=== PATIENT | female | born 1965 | race Caucasian/White ===

== ENCOUNTER → 2016-10-06 | Outpatient (CLI) | payer OTHER ==
[2016-10-06 07:45] LABS: HEMATOCRIT 43.4 % (35.0-46.0); MEAN CELL VOLUME 86.7 FL (80.0-100.0); MEAN CORPUSCULAR HEMOGLOBIN 29.8 PG (27.0-34.0); MEAN CORPUSCULAR HGB CONC 34.4 % (32.0-36.0); PLATELET COUNT 206 TH/MM3 (150-450); RED BLOOD COUNT 5.01 MIL/MM3 (4.00-5.30); RED CELL DISTRIBUTION WIDTH 13.6 % (11.6-17.2); REVIEW FLAG FINAL; WHITE BLOOD COUNT 6.5 TH/MM3 (4.0-11.0)
[2016-10-06 08:12] LABS: ANION GAP 8 MEQ/L (5-15); AST (GOT) 16 U/L (15-37); BICARBONATE 26.5 MEQ/L (21.0-32.0); BLOOD UREA NITROGEN 14 MG/DL (7-18); CHLORIDE 107 MEQ/L (98-107); GLUCOSE,FASTING 92 MG/DL (74-99); POTASSIUM 4.2 MEQ/L (3.5-5.1); SODIUM (NA) 141 MEQ/L (136-145)
[2016-10-06 08:26] LABS: BLOOD, URINE NEG (NEG); COMMENT (UR) CULT NOT INDICATED; CULTURE IF INDICATED CULT NOT INDICATED; GLUCOSE,URINE NEG (NEG); KETONE, URINE 40 mg/dL (NEG); MUCUS URINE FEW /lpf (OCC); NITRITE,URINE NEG (NEG); PH, URINE 5.5 (5.0-8.5); SQUAMOUS EPITHELIAL CELL URINE <1 /hpf (0-5); URINE COLOR YELLOW (YELLW/STRAW)
[2016-10-06 08:39] LABS: ALKALINE PHOSPHATASE 75 U/L (45-117); ALT (GPT) 29 U/L (10-53); GLOMERULAR FILTRATION RATE 71 ML/MIN (>89); HDL CHOLESTEROL 48.5 MG/DL (40.0-60.0); LDL CHOLESTEROL 131 MG/DL (0-99); TOTAL BILIRUBIN ADULT 0.4 MG/DL (0.2-1.0)
== END ==
LOC: CLAB 07:14
PROVIDERS: ATTEND Internal Medicine
DX: R73.01 Impaired fasting glucose (principal); E53.8 Deficiency of other specified B group vitamins; E55.9 Vitamin D deficiency, unspecified; N20.0 Calculus of kidney
CPT/HCPCS: 36415; 80053; 80061; 81001; 82306; 82607; 84443; 85027

== ENCOUNTER → 2017-01-25 | Outpatient (CLI) | payer OTHER ==
[~2017-01-25] MED LIST: BUSP5TAB PO; HYDR-3366 PO; IBUP1TAB7 PO
[2017-01-25 12:16] LABS: BLOOD, URINE NEG (NEG); GLUCOSE,URINE NEG (NEG); KETONE, URINE NEG (NEG); NITRITE,URINE NEG (NEG); SQUAMOUS EPITHELIAL CELL URINE <1 /hpf (0-5); URINE COLOR LIGHT-YELLOW (YELLW/STRAW)
[2017-01-25 12:17] LABS: COMMENT (UR) CULT NOT INDICATED; CULTURE IF INDICATED CULT NOT INDICATED
[2017-01-25 12:19] LABS: AUTOMATED NEUTROPHIL # 4.8 TH/MM3 (1.8-7.7); BASOPHIL # 0.1 TH/MM3 (0-0.2); BASOPHIL % 0.7 % (0.0-2.0); EOSINOPHIL # 0.1 TH/MM3 (0-0.4); HEMATOCRIT 43.1 % (35.0-46.0); HEMO FLAGS DIFF FINAL; LYMPH % 36.5 % (9.0-44.0); LYMPHOCYTE # 3.2 TH/MM3 (1.0-4.8); MEAN CELL VOLUME 88.1 FL (80.0-100.0); MEAN CORPUSCULAR HEMOGLOBIN 29.6 PG (27.0-34.0); MEAN CORPUSCULAR HGB CONC 33.6 % (32.0-36.0); MONO % 7.6 % (0.0-8.0); NEUT % 54.2 % (16.0-70.0); PLATELET COUNT 237 TH/MM3 (150-450); RED BLOOD COUNT 4.89 MIL/MM3 (4.00-5.30); RED CELL DISTRIBUTION WIDTH 13.9 % (11.6-17.2); WHITE BLOOD COUNT 8.8 TH/MM3 (4.0-11.0)
[2017-01-25 12:23] LABS: APTT (PATIENT) 26.7 SEC (24.3-30.1); PROTHROMBIN TIME - PATIENT 10.6 SEC (9.8-11.6)
--- NOTE | 2017-01-25 12:52 | RADRPT ---
EXAM DATE/TIME: 01/25/2017 12:31 [facility] COMPARISON: No previous studies available for comparison. INDICATIONS : Pre op cervical disectomy. Evaluate for pneumonia, pneumothorax, or communicable diseases. MEDICAL HISTORY : None. SURGICAL HISTORY : None. ENCOUNTER: Initial ACUITY: 1 day PAIN SCORE: 0/10 LOCATION: Bilateral chest FINDINGS: PA and lateral views of the chest demonstrate the lungs to be symmetrically aerated without evidence of mass, infiltrate or effusion. The cardiomediastinal contours are unremarkable. Osseous structure s are intact. CONCLUSION: No acute disease. Blayne Gaitan MD on January 25, 2017 at 12:51 Board Certified Radiologist. This report was verified electronically.
--- NOTE | 2017-01-26 15:47 | EKG ---
Date Performed: 01/25/2017 Time Performed: 12:02:23 PTAGE: 52 years EKG: Sinus rhythm NORMAL ECG NO PREVIOUS TRACING DOCTOR: Phong Orr Interpretating Date/Time 01/26/2017 15:46:19
== END ==
LOC: CPRE 11:37
PROVIDERS: ATTEND Neurological Surgery
DX: Z01.812 Encounter for preprocedural laboratory examination (principal); Z01.811 Encounter for preprocedural respiratory examination; Z01.810 Encounter for preprocedural cardiovascular examination; M50.10 Cervical disc disorder with radiculopathy, unspecified cervical region; M48.02 Spinal stenosis, cervical region; M50.30 Other cervical disc degeneration, unspecified cervical region; M47.12 Other spondylosis with myelopathy, cervical region; Z79.01 Long term (current) use of anticoagulants
CPT/HCPCS: 36415; 71020; 81001; 85025; 85610; 85730; 93005

== ENCOUNTER 2017-02-01 06:02 | Observation (INO) | payer OTHER ==
[~2017-02-01] VITALS: Ht 165.1 cm; Wt 105.0 kg
[2017-02-01] MEDS ORDERED: VANCOMYCIN HCL 1000 MG ON-CALL/NS 250 ML IV SCH ×2 (07:00)
[2017-02-01] MEDS ORDERED: SODIUM CHLORID 0.9% 500 ML IV PRN (07:00)
[2017-02-01] MEDS ORDERED: CHLORHEXIDINE GLUCONATE 2 % 1 PACK (2 CLOTHS) TOPICAL PRN (07:00)
[2017-02-01] MEDS ORDERED: METOPROLOL TARTRATE 25 MG TAB PO PRN (07:00)
[2017-02-01] MEDS ORDERED: INSULIN HUMAN REGULAR 1,000 UNITS/10 ML VIAL SQ PRN (07:00)
[2017-02-01] MEDS ORDERED: POVIDONE IODINE 5% (ANTISEPSIS KIT) 4 APPLICATIONS EACH NARE PRN (07:00)
[2017-02-01] MEDS ORDERED: SODIUM CHLOR 0.9% 1000 ML INJ 1,000 ML IV SCH (07:00)
[2017-02-01] MEDS ORDERED: LACTATED RINGER'S 1000 ML IV PRN (07:00)
[2017-02-01] MEDS ORDERED: VANCOMYCIN HCL 1000 MG VIAL ONE (07:10)
[2017-02-01] MEDS ORDERED: BUPIVACAINE/EPINEPHRINE 0.5% PF 30 ML VIAL ONE (07:10)
[2017-02-01] MEDS ORDERED: THROMBIN (TOPICAL) 5,000 UNIT VIAL ONE ×2 (07:10→10:36)
[2017-02-01] MEDS ORDERED: GELFOAM SIZE 100 ONE ×2 (07:11→10:36)
[2017-02-01] MEDS ORDERED: APREPITANT 40 MG CAP ONE (07:45)
[2017-02-01] MEDS ORDERED: PROPOFOL 500 MG/50 ML INJ 100 ML ONE (07:57)
[2017-02-01] MEDS ORDERED: ACETAMINOPHEN 1000 MG/100 ML 100 ML IV ONE (07:57)
[2017-02-01] MEDS ORDERED: DEXAMETHASONE SOD PHOS 4 MG/ML VIAL ONE (07:57)
[2017-02-01] MEDS ORDERED: NS + KCL 20 MEQ INJ 1,000 ML IV SCH (11:42)
[2017-02-01] MEDS ORDERED: MENTHOL LOZENGE BUCCAL PRN (11:45)
[2017-02-01] MEDS ORDERED: ACETAMINOPHEN/HYDROcodone 325 MG/10 MG TAB PO PRN ×2 (11:45)
[2017-02-01] MEDS ORDERED: ZOLPIDEM TARTRATE 5 MG TAB PO PRN (11:45)
[2017-02-01] MEDS ORDERED: PROMETHAZINE INJ 25 MG/ML VIAL IM PRN (11:45)
[2017-02-01] MEDS ORDERED: CYCLOBENZAPRINE HCL 10 MG TAB PO PRN (11:45)
[2017-02-01] MEDS ORDERED: RESP: ALBUTEROL 2.5 MG/3 ML NEB (PRN) NEB (11:45)
[2017-02-01] MEDS ORDERED: MAGNESIUM HYDROXIDE SUSP 30 ML CUP PO PRN (11:45)
[2017-02-01] MEDS ORDERED: SODIUM CHLORIDE 0.9% FLUSH 10 ML FLUSH IV FLUSH PRN (11:45)
[2017-02-01] MEDS ORDERED: ALUMINUM/MAGNESIUM/SIMETH 30 ML CUP PO PRN (11:45)
[2017-02-01] MEDS ORDERED: cloNIDine HCL 0.1 MG TAB PO PRN (11:45)
[2017-02-01] MEDS ORDERED: ACETAMINOPHEN 325 MG TAB PO PRN (11:45)
--- NOTE | 2017-02-01 11:48 | PD.OP ---
Silvia Angulo MD Operative Report Date of Surgery: Feb 01, 2017 Preoperative Diagnosis: Intractable neck pain with polyradiculopathy; C5-6 and C6-7 disc osteophyte complexes stenosis spinal and foraminal stenosis Postoperative Diagnosis: Same Procedure: Anterior cervical C5-6 and C6-7 microdiscectomy with interbody fusion; anterior C5-7 cervical plate placement; C5-6 and C6-7 interbody cage placement; microsurgical technique Anesthesia: Gen. endotracheal by Titus bernardo Surgeon: Julius Wen M.D. [employer] Laborer(s): Opal Loja Operation and Findings: Following administration of general endotracheal anesthesia, the patient received a gram of vancomycin and Decadron 10 mg intravenously. Sequential compression devices and Jaimes catheter were placed in supine position on a Sudheer table and all pressure points adequately padded. The head secured in a donut and anterior cervical region then shaved and prepped with Chloraprep and sterilely draped with Ioban along with the usual sterile draping. A transverse skin incision on the left side of the neck was then made after infiltrating the skin with 0.5% Marcaine with epinephrine solution extending down through the platysma. At the anterior border of the sternocleidomastoid further dissection was undertaken developing a plane between the carotid sheath laterally and the trachea esophagus medially. The prevertebral fascia was exposed and dissected out. The medial attachments of the longus colli muscles were detached and a self-retaining retractor used for exposure. The C5-6 disc space was localized with a marking the disc space and using lateral fluoroscopy. Hallandale distraction screws 14 mm length were placed one in the C5 and one in the C7 body interbody distraction and exposure. There was significant disc degeneration and anterior osteophytes noted at the C5-6 and C6-7 levels and the osteophytes were resected with a Leksell and annulus incised with a 15 blade and further dissection undertaken using microtechnique with microscope magnification. Diskectomy was undertaken with pituitaries and the endplates were also decorticated with curettes and drill bit. And more posteriorly there was disk osteophyte complex compressing the thecal sac along with a significant uncovertebral joint hypertrophy with foraminal stenosis which was decompressed along with removal of the posterior longitudinal ligaments at both levels. The foramen was decompressed bilaterally using a Kerrison's and palpation with a nerve hook, the exiting nerve roots were felt to be free. The area was then copiously irrigated. I then placed a Peek cage packed with local autograft bone at the C5-6 interspace under fluoroscopy guidance. Hallandale distraction pins were removed and the holes plugged with Gelfoam for hemostasis. In order to facilitate the fusion and provide stabilization, a Precision spine cervical plate was then placed with two 14 mm variable angle screws in the C5 body and two 14 mm fixed angle screws in the C6 body. The plate screw locking mechanism was then engaged. AP and lateral fluoroscopy confirmed good placement of the construct and the retractor was then removed. Muscular bleeding points were cauterized with bipolar cautery and Gelfoam was then also used for hemostasis which was removed. The platysma was then approximated using 3-0 Vicryl interrupted stitches and 3-0 Vicryl subcuticular stitch also placed in an interrupted fashion, and final skin closure was with Mastisol and Steri-Strips. Sterile dressing was then applied. Neck immobilized in a Ellsworth collar. The patient was then extubated and taken to the recovery room. There are no intraoperative complications and all sponge and needle counts were correct at the end of procedure. Estimated blood loss was about 50 cc. The patient did undergo intraoperative neurologic monitoring which remained stable throughout the surgery. Julius Wen MD Feb 01, 2017 11:48
[2017-02-01] MEDS ORDERED: METOPROLOL TARTRATE 5 MG/5 ML VIAL IV PUSH ONE (12:00)
[2017-02-01] MEDS ORDERED: LIDOCAINE HCL 1% PF 5 ML SYRINGE OTHER ONE ×2 (12:00)
[2017-02-01] MEDS ORDERED: LACTATED RINGER'S 1000 ML INJ 1,000 ML IV ONE (12:00)
[2017-02-01] MEDS ORDERED: ONDANSETRON HCL 4 MG/2 ML VIAL IV ONE (12:00)
[2017-02-01] MEDS ORDERED: ROCURONIUM INJ 50 MG/5 ML SYRINGE IV PUSH ONE ×2 (12:00)
[2017-02-01] MEDS ORDERED: MIDAZOLAM HCL 2 MG/2 ML VIAL IV ONE (12:00)
[2017-02-01] MEDS ORDERED: PHENYLEPH/NS 1000 MCG/10 ML SYR IV ONE (12:00)
[2017-02-01] MEDS ORDERED: GLYCOPYRROLATE 1 MG/5 ML SYRINGE IV PUSH ONE ×2 (12:00)
[2017-02-01] MEDS ORDERED: ONDANSETRON HCL 4 MG/2 ML VIAL IV PUSH ONE (12:00)
[2017-02-01] MEDS ORDERED: NORMOSOL R INJ 1,000 ML IV ONE (12:00)
[2017-02-01] MEDS ORDERED: ePHEDrine/NS 25 MG/5 ML SYR IV ONE (12:00)
[2017-02-01] MEDS ORDERED: DEXAMETHASONE SOD PHOS 4 MG/ML VIAL IV ONE ×2 (12:00)
[2017-02-01] MEDS ORDERED: PROPOFOL 200 MG/20 ML AMP IV ONE ×2 (12:00)
[2017-02-01] MEDS ORDERED: NEOSTIGMINE 5 MG/5 ML SYRINGE IV PUSH ONE ×2 (12:00)
[2017-02-01] MEDS ORDERED: *morphine SULFATE 8 MG/ML PERIprocedure ONLY ONE ×2 (12:02→12:23)
[2017-02-01] MEDS ORDERED: DO NOT ADM ANY ANTICOAGULANT DRUGS PRN (12:15)
[2017-02-01] MEDS: CLINDAMYCIN INJ 600 MG in SODIUM CHLORIDE 0.9% INJ 100 ML IV SCH ×2 (13:00→20:07)
--- NOTE | 2017-02-01 13:01 | RADRPT ---
EXAM DATE/TIME: 02/01/2017 08:29 [facility] COMPARISON: No previous studies available for comparison. INDICATIONS : Post-op C5-C6 and C6-C7 anterior cervical fusion. MEDICAL HISTORY : None. SURGICAL HISTORY : None. ENCOUNTER: Initial ACUITY: 1 day PAIN SCORE: Non-responsive. LOCATION: neck FINDINGS: Two projection examination was performed. Post surgical changes following anterior cervical fusion f rom C5-C7 are noted. There is an anterior fusion plate as well as vertebral body cage placement. Cervical alignment is well maintained without evidence of listhesis. CONCLUSION: 1. Status post anterior cervical fusion from C5-C7. 2. Stable alignment and no evidence of complication. Blayne Gaitan MD on February 01, 2017 at 12:58 Board Certified Radiologist. This report was verified electronically.
--- NOTE | 2017-02-01 13:06 | RADRPT ---
EXAM DATE/TIME: 02/01/2017 08:29 [facility] COMPARISON: No previous studies available for comparison. INDICATIONS : C5-C6 and C6-C7 anterior cervical fusion. Level localization. MEDICAL HISTORY : None. SURGICAL HISTORY : None. ENCOUNTER: Initial ACUITY: 1 day PAIN SCORE: Non-responsive. LOCATION: neck FINDINGS: A single lateral view of the cervical spine was performed. A localizer is identified in C5-6 disc in terspace. CONCLUSION: Level localizer at the C5-6 disc interspace. Blayne Gaitan MD on February 01, 2017 at 13:00 Board Certified Radiologist. This report was verified electronically.
[2017-02-01] MEDS ORDERED: *HYDROmorphone PF 1 MG VIAL PERIprocedural Use ONLY ONE (13:24)
[2017-02-01 14:30] VITALS: O2SAT 96
[2017-02-01] MEDS: DEXAMETHASONE SOD PHOS 4 MG/ML VIAL IV PUSH SCH ×2 (15:00→20:07)
[2017-02-01 15:20] VITALS: BP 102/67; PULSE 73; RESP 18; TEMP 95.6; O2SAT 96
[2017-02-01] MEDS: MORPHINE SULFATE 4 MG/ML INJ IV PUSH PRN ×2 (16:13→19:57)
[2017-02-01] MEDS ORDERED: FUROSEMIDE 20 MG/2 ML VIAL IV PUSH ONE (17:45)
[2017-02-01] MEDS: ONDANSETRON HCL 4 MG/2 ML VIAL IV PUSH PRN (20:01)
[2017-02-01] MEDS: busPIRone HCL 5 MG TAB PO SCH (20:07)
[2017-02-01] MEDS: SODIUM CHLORIDE 0.9% FLUSH 10 ML FLUSH IV FLUSH SCH (20:07)
[2017-02-01] MEDS: DOCUSATE SODIUM 100 MG CAP PO SCH (20:07)
[2017-02-01 21:42] VITALS: BP 101/61; PULSE 66; RESP 16; TEMP 97.8; O2SAT 96
[2017-02-02 00:57] VITALS: BP 92/55; PULSE 73; RESP 16; TEMP 97.6; O2SAT 96
[2017-02-02] MEDS: CLINDAMYCIN INJ 600 MG in SODIUM CHLORIDE 0.9% INJ 100 ML IV SCH ×2 (01:02→05:43)
[2017-02-02] MEDS: DEXAMETHASONE SOD PHOS 4 MG/ML VIAL IV PUSH SCH (01:03)
[2017-02-02] MEDS: MORPHINE SULFATE 4 MG/ML INJ IV PUSH PRN (01:03)
[2017-02-02] MEDS: ONDANSETRON HCL 4 MG/2 ML VIAL IV PUSH PRN (01:03)
[2017-02-02 05:02] VITALS: BP 105/60; PULSE 65; RESP 16; TEMP 98.1; O2SAT 96
[2017-02-02 08:00] VITALS: BP 87/53; PULSE 67; RESP 16; TEMP 96.1; O2SAT 94
[2017-02-02] MEDS: busPIRone HCL 5 MG TAB PO SCH (08:46)
[2017-02-02] MEDS: DOCUSATE SODIUM 100 MG CAP PO SCH (08:46)
[2017-02-02] MEDS: SODIUM CHLORIDE 0.9% FLUSH 10 ML FLUSH IV FLUSH SCH (08:47)
[2017-02-02] MEDS ORDERED: PANTOPRAZOLE SOD 40 MG DELAYED RELEASE TAB PO SCH (09:00)
--- NOTE | 2017-02-02 09:48 | HHI.NSPN ---
(Blade Chance) History Chief Complaint: Incisional soreness. (Blade Chance) Interval History 02/02/17: Pt s/p C5/C6 and C6/C7 anterior cervical fusion with plate placement on 02/01/17. She has mild neck soreness and tingling in the 5th fingers bilaterally but feeling much better. Her bp was low this morning possibly related to her pain medication and she states she normally takes 5mg. Her bp was in the 80s systolic and she had some dizziness when up but no syncope. I rechecked it and she is now in the 90s and is due for another pain pill. She is very pleased with the results so far. (Blade Chance) Review of Systems General: Negative for: fever, chills, insomnia Respiratory: Negative for: shortness of breath, cough, sputum Cardiovascular: Negative for: chest pain Gastrointestinal: Negative for: nausea, vomitting, diarrhea, constipation ( Blade Chance) Exam Results Vital Signs Date Time Temp Pulse Resp B/P (MAP) Pulse Ox O2 Delivery O2 Flow Rate FiO2 02/02/17 08:00 96.1 67 16 87/53 (64) 94 02/02/17 07:30 Room Air 02/01/17 14:30 2 Intake and Output 02/02/17 02/02/17 02/03/17 08:00 16:00 00:00 Intake Total 104 ml Balance 104 ml (Blade Chance) Physical Examination Resp: CTA bilaterally Heart: NSR no murmurs Abd: Soft positive bs Skin: Bandage changed by RN this am clean and dry. Muscle: Moves UEs with mild give away weakness in LUE. Neuro: Pt awake and alert. Follows commands well. Speech clear and appropriate. (Blade Chance) Lab, Micro, Other Results Last Impressions Cervical Spine X-Ray 02/01/17 0000 Signed Impressions: Service Date/Time: Wednesday, February 01, 2017 08:29 - CONCLUSION: 1. Status post anterior cervical fusion from C5-C7. 2. Stable alignment and no evidence of complication. Blayne Gaitan MD (Blade Chance) Medical Decision Making Impression and Plan A: 52 y/o FM s/p C5/C6 and C6/C7 anterior cervical fusion with plate placement. P: Continue to monitor bp. Pain medication reduced to Justice 5mg OOB to chair. If BP continues to improve or stabilize without symptoms will discharge pt home. (Blade Chance) Attending Statement The exam, history, and the medical decision-making described in the above note were completed with the assistance of the mid-level provider. I reviewed and agree with the findings presented. I attest that I had a [id number] encounter with the patient on the same day, and personally performed and documented my assessment and findings in the medical record. (Julius Wen MD) Blade Chance Feb 02, 2017 09:48 Julius Wen MD Feb 02, 2017 17:18
[2017-02-02] MEDS ORDERED: INFLUENZA VIRUS VACCINE (QUADRIVALENT) 0.5 ML SYR IM ONE (10:00)
[2017-02-02] MEDS ORDERED: SODIUM CHLORID 0.9% 500 ML INJ 500 ML IV ONE (10:00)
[2017-02-02] MEDS: ACETAMINOPHEN/HYDROcodone 325 MG/5 MG TAB PO PRN ×2 (10:36→17:17)
[2017-02-02 12:00] VITALS: BP 100/57; PULSE 70; RESP 16; TEMP 97.3; O2SAT 95
[2017-02-02 14:40] VITALS: O2SAT 94
[2017-02-02] MEDS ORDERED: HYDR-3366 PO (16:52)
== END 2017-02-02 17:34 | disposition home or self-care (01) ==
LOC: HSDC 06:02 → HSDI 11:47 → N06A 15:29
PROVIDERS: ADMIT Neurological Surgery; ATTEND Neurological Surgery
DX: M50.123 Cervical disc disorder at C6-C7 level with radiculopathy (principal); M50.323 Other cervical disc degeneration at C6-C7 level; M48.02 Spinal stenosis, cervical region; M47.12 Other spondylosis with myelopathy, cervical region; M25.78 Osteophyte, vertebrae
CPT/HCPCS: 00600; 20936; 22551; 22552; 22845; 22853; 72020; 72040; 76000; 96361; 96374; 96375; 96376; C1713; G0378; J0131; J1100; J1170; J2270; J2405; J3370; J3480; J7040; J7050; J7120; J8501; L0150; L0172; J2250; J2370; J2710; J3010

== ENCOUNTER 2017-07-12 15:17 | Emergency (ER) | payer OTHER ==
[~2017-07-12] VITALS: Ht 165.1 cm; Wt 108.6 kg
[~2017-07-12 15:17] MED LIST changes: -IBUP1TAB7 PO; +NEUR100C PO
[2017-07-12 15:44] VITALS: BP 144/88; PULSE 92; RESP 18; TEMP 99.1; O2SAT 100
--- NOTE | 2017-07-12 15:57 | PD ---
HPI Chief Complaint: Abdominal Pain Time Seen by Provider: 15:55 Travel History International Travel<30 days: No Contact w/Intl Traveler<30days: No Traveled to known affect area: No History of Present Illness HPI 52-year-old female came to the emergency room with history of left upper quadrant pain that started this morning. Patient has history of diverticulitis and the last episode was in February of this year. She had finished a course of antibiotic at that time. Patient says this time the pain is worse than before. She took one hydrocodone that she had from her neck surgery in the recent past. Patient has felt feverish and her temperature was 99 in triage. No history of nausea vomiting. No aggravating or relieving symptoms associated with the pain. Patient ate some chicken noodle soup earlier in the afternoon. No history of dysuria or hematuria. Pain is non-radiating. PFSH Past Medical History Narrative Medical List of her past medical, surgical, social and family history is reviewed from the nursing note. Arthritis: No Asthma: No Autoimmune Disease: No Heart Rhythm Problems: No Cancer: No Cardiovascular Problems: No High Cholesterol: No Chest Pain: No Congestive Heart Failure: No COPD: No Cerebrovascular Accident: No Diabetes: No Diminished Hearing: No Endocrine: No Genitourinary: No Headaches: No Hepatitis: No Hiatal Hernia: No Hypertension: No Immune Disorder: No Kidney Stones: No Musculoskeletal: Yes (OA) Neurologic: Yes (NUMBNESS AND TINGLING IN HANDS AND FEET) Psychiatric: No Reproductive: No Respiratory: No Migraines: No Myocardial Infarction: No Renal Failure: No Seizures: No Sleep Apnea: No Thyroid Disease: No Tubal Ligation: Yes Past Surgical History Abdominal Surgery: No Cardiac Surgery: No Ear Surgery: No Endocrine Surgery: No Eye Surgery: No Genitourinary Surgery: No Gynecologic Surgery: Yes (TUBAL AND HYSTERECTOMY) Hysterectomy: Yes Joint Replacement: No Oral Surgery: No Thoracic Surgery: No Social History Alcohol Use: No Tobacco Use: No Substance Use: No Allergies-Medications (Allergen,Severity, Reaction): Coded Allergies: penicillin G (Verified Allergy, Mild, Rash, 07/12/17) Comments List of her allergies reviewed from the nursing note Reported Meds & Prescriptions Reported Meds & Active Scripts Active Bernard (Hydrocodone-Acetaminophen) 10-325 Mg Tab 1 Tab PO Q6H PRN Neurontin (Gabapentin) 100 Mg Cap 100 Mg PO HS Reported Buspirone (Buspirone HCl) 5 Mg Tab 5 Mg PO BID Narrative Medication List of her home medications reviewed from the nursing note Review of Systems Except as stated in HPI: all other systems reviewed are Neg Gastrointestinal: Positive: Abdominal Pain Physical Exam Narrative GENERAL: Awake, alert, moderate to SKIN: Focused skin assessment warm/dry. HEAD: Atraumatic. Normocephalic. EYES: Pupils equal and round. No scleral icterus. No injection or drainage. ENT: No nasal bleeding or discharge. Mucous membranes pink and moist. NECK: Trachea midline. No JVD. CARDIOVASCULAR: Regular rate and rhythm. No murmur appreciated. RESPIRATORY: No accessory muscle use. Clear to auscultation. Breath sounds equal bilaterally. GASTROINTESTINAL: Abdomen soft, tenderness in the left upper quadrant area, nondistended. Hepatic and splenic margins not palpable. MUSCULOSKELETAL: No obvious deformities. No clubbing. No cyanosis. No edema. NEUROLOGICAL: Awake and alert. No obvious cranial nerve deficits. Motor grossly within normal limits. Normal speech. PSYCHIATRIC: Appropriate mood and affect; insight and judgment normal. Data Data Last Documented VS Vital Signs Date Time Temp Pulse Resp B/P (MAP) Pulse Ox O2 Delivery O2 Flow Rate FiO2 07/12/17 16:09 99 07/12/17 15:44 99.1 92 18 144/88 (106) Orders Orders Complete Blood Count With Diff (07/12/17 16:06) Comprehensive Metabolic Panel (07/12/17 16:06) Lipase (07/12/17 16:06) Urinalysis - C+S If Indicated (07/12/17 16:06) Ct Abd/Pel W/O Iv Contrast (07/12/17 16:06) Iv Access Insert/Monitor (07/12/17 16:06) Ecg Monitoring (07/12/17 16:06) Oximetry (07/12/17 16:06) Morphine Inj (Morphine Inj) (07/12/17 16:15) Ondansetron Inj (Zofran Inj) (07/12/17 16:15) Sodium Chlor 0.9% 1000 Ml Inj (Ns 1000 M (07/12/17 16:06) Sodium Chloride 0.9% Flush (Ns Flush) (07/12/17 16:15) Ketorolac Inj (Toradol Inj) (07/12/17 16:15) Labs Laboratory Tests Test 07/12/17 16:20 [facility] Medical Decision Making Medical Screen Exam Complete: Yes Emergency Medical Condition: Yes Medical Record Reviewed: Yes Differential Diagnosis Acute diverticulitis, renal colic, abdominal pain nos Narrative Course 4:12 PM awaiting for the blood test result. Patient is getting medicated for pain. Awaiting for the CAT scan to be done and resulted. 4:42 PM awaiting for the blood test results and the CAT scan to be done and resulted. Case will be signed over to the oncoming ER physician Procedures EKG Prior to Arrival: Nikko Og MD July 12, 2017 15:57
[2017-07-12] MEDS ORDERED: SODIUM CHLOR 0.9% 1000 ML INJ 1,000 ML IV SCH (16:06)
[2017-07-12 16:09] VITALS: O2SAT 99
[2017-07-12] MEDS ORDERED: KETOROLAC TROMETHAMINE 30 MG/ML (IVP) VIAL IVP ONE (16:15)
[2017-07-12] MEDS ORDERED: ONDANSETRON HCL 4 MG/2 ML VIAL IVP ONE (16:15)
[2017-07-12] MEDS ORDERED: SODIUM CHLORIDE 0.9% FLUSH 10 ML FLUSH IV FLUSH PRN (16:15)
[2017-07-12] MEDS ORDERED: MORPHINE SULFATE 4 MG/ML INJ IV PUSH ONE ×2 (16:15→18:45)
[2017-07-12 16:45] LABS: BACTERIA, URINE OCC /hpf; BILIRUBIN, URINE NEG (NEG); BLOOD, URINE NEG (NEG); GLUCOSE,URINE NEG (NEG); KETONE, URINE NEG (NEG); NITRITE,URINE NEG (NEG); PH, URINE 6.5 (5.0-8.5); SQUAMOUS EPITHELIAL CELL URINE 4 /hpf (0-5); URINE COLOR COLORLESS (YELLW/STRAW); URINE LEUKOCYTE ESTERASE NEG (NEG)
[2017-07-12 16:47] LABS: AUTOMATED NEUTROPHIL # 9.7 TH/MM3 (1.8-7.7); BASOPHIL # 0.1 TH/MM3 (0-0.2); BASOPHIL % 0.5 % (0.0-2.0); EOSINOPHIL # 0.1 TH/MM3 (0-0.4); HEMATOCRIT 47.3 % (35.0-46.0); HEMOGLOBIN 15.7 GM/DL (11.6-15.3); LYMPH % 21.5 % (9.0-44.0); LYMPHOCYTE # 3.1 TH/MM3 (1.0-4.8); MEAN CELL VOLUME 86.9 FL (80.0-100.0); MEAN CORPUSCULAR HEMOGLOBIN 28.8 PG (27.0-34.0); MEAN CORPUSCULAR HGB CONC 33.2 % (32.0-36.0); MEAN PLATELET VOLUME 9.6 FL (7.0-11.0); MONO % 9.6 % (0.0-8.0); MONOCYTE # 1.4 TH/MM3 (0-0.9); NEUT % 67.4 % (16.0-70.0); PLATELET COUNT 257 TH/MM3 (150-450); RED BLOOD COUNT 5.45 MIL/MM3 (4.00-5.30); RED CELL DISTRIBUTION WIDTH 13.9 % (11.6-17.2); WHITE BLOOD COUNT 14.4 TH/MM3 (4.0-11.0)
[2017-07-12 16:54] LABS: ALBUMIN 3.9 GM/DL (3.4-5.0); ALT (GPT) 32 U/L (10-53); AST (GOT) 24 U/L (15-37); BICARBONATE 28.4 MEQ/L (21.0-32.0); BLOOD UREA NITROGEN 13 MG/DL (7-18); CALCIUM 9.3 MG/DL (8.5-10.1); CHLORIDE 106 MEQ/L (98-107); CREATININE 0.94 MG/DL (0.50-1.00); GLOMERULAR FILTRATION RATE 63 ML/MIN (>89); GLUCOSE,RANDOM 94 MG/DL (74-106); SODIUM (NA) 141 MEQ/L (136-145)
[2017-07-12 16:55] LABS: ALKALINE PHOSPHATASE 119 U/L (45-117); TOTAL BILIRUBIN ADULT 0.4 MG/DL (0.2-1.0); TOTAL PROTEIN 8.3 GM/DL (6.4-8.2)
[2017-07-12] MEDS ORDERED: metroNIDAZOLE 500 MG INJ 100 ML IV ONE (17:00)
[2017-07-12] MEDS ORDERED: CIPROFLOXACIN 400 MG PREMIX 200 ML IV ONE (17:00)
--- NOTE | 2017-07-12 18:25 | RADRPT ---
EXAM DATE/TIME: 07/12/2017 17:58 [facility] COMPARISON: No previous studies available for comparison. INDICATIONS : Left sided abdominal pain ORAL CONTRAST: No oral contrast ingested. RADIATION DOSE: 15.39 CTDIvol (mGy) MEDICAL HISTORY : Diverticulitis. SURGICAL HISTORY : Tubal ligation. Hysterectomy. ENCOUNTER: Initial ACUITY: 1 day PAIN SCALE: 8/10 LOCATION: Left Abdomen TECHNIQUE: Volumetric scanning of the abdomen and pelvis was performed. Using automated exposure control and ad justment of the mA and/or kV according to patient size, radiation dose was kept as low as reasonably achievable to obtain optimal diagnostic quality images. DICOM format image data is available electro nically for review and comparison. FINDINGS: LOWER LUNGS: The visualized lower lungs are clear. LIVER: Homogeneous density without lesion. There is no dilation of the biliary tree. No calcified gallston es. SPLEEN: Normal size without lesion. PANCREAS: Within normal limits. KIDNEYS: Normal in size and shape. There is no mass or hydronephrosis. There is a [address] one. ADRENAL GLANDS: There is a 3 cm left adrenal gland mass with a small focal area of macroscopic fat. This consistent w ith a benign etiology such as a adenoma or myelolipoma. The right adrenal gland is normal. VASCULAR: There is no aortic aneurysm. BOWEL/MESENTERY: There is an area of inflammatory change seen in the left posterior midabdomen adjacent to the mid will cending colon. There appears to be an inflamed diverticulum in this region. These changes are consist ent with diverticulitis. An abscess is not seen. Inflammatory change extends into the left paracolic gutter region. ABDOMINAL WALL: Within normal limits. RETROPERITONEUM: There is no lymphadenopathy. BLADDER: No wall thickening or mass. REPRODUCTIVE: Within normal limits. INGUINAL: There is no lymphadenopathy or hernia. MUSCULOSKELETAL: Within normal limits for patient age. CONCLUSION: 1. Diverticulitis involving the mid descending colon. 2. Nonobstructing left renal stone. 3. Benign left adrenal mass. Mike Eduardo MD on July 12, 2017 at 18:18 Board Certified Radiologist. This report was verified electronically.
[2017-07-12] MEDS ORDERED: METR-1 PO (18:41)
[2017-07-12] MEDS ORDERED: HYDR-3516 PO (18:41)
[2017-07-12] MEDS ORDERED: CIPR-9 PO (18:41)
--- NOTE | 2017-07-12 18:42 | PD ---
Data Data Last Documented VS Vital Signs Date Time Temp Pulse Resp B/P (MAP) Pulse Ox O2 Delivery O2 Flow Rate FiO2 07/12/17 16:09 99 07/12/17 15:44 99.1 92 18 144/88 (106) Orders Orders Complete Blood Count With Diff (07/12/17 16:06) Comprehensive Metabolic Panel (07/12/17 16:06) Lipase (07/12/17 16:06) Urinalysis - C+S If Indicated (07/12/17 16:06) Ct Abd/Pel W/O Iv Contrast (07/12/17 16:06) Iv Access Insert/Monitor (07/12/17 16:06) Ecg Monitoring (07/12/17 16:06) Oximetry (07/12/17 16:06) Morphine Inj (Morphine Inj) (07/12/17 16:15) Ondansetron Inj (Zofran Inj) (07/12/17 16:15) Sodium Chlor 0.9% 1000 Ml Inj (Ns 1000 M (07/12/17 16:06) Sodium Chloride 0.9% Flush (Ns Flush) (07/12/17 16:15) Ketorolac Inj (Toradol Inj) (07/12/17 16:15) Blood Culture (07/12/17 16:49) Ciprofloxacin 400 Mg Premix (Cipro 400 M (07/12/17 17:00) Metronidazole 500 Mg Inj (Flagyl 500 Mg (07/12/17 17:00) Morphine Inj (Morphine Inj) (07/12/17 18:45) Labs Laboratory Tests Test 07/12/17 16:20 White Blood Count 14.4 TH/MM3 Red Blood Count 5.45 MIL/MM3 Hemoglobin 15.7 GM/DL Hematocrit 47.3 % Mean Corpuscular Volume 86.9 FL Mean Corpuscular Hemoglobin 28.8 PG Mean Corpuscular Hemoglobin Concent 33.2 % Red Cell Distribution Width 13.9 % Platelet Count 257 TH/MM3 Mean Platelet Volume 9.6 FL Neutrophils (%) (Auto) 67.4 % Lymphocytes (%) (Auto) 21.5 % Monocytes (%) (Auto) 9.6 % Eosinophils (%) (Auto) 1.0 % Basophils (%) (Auto) 0.5 % Neutrophils # (Auto) 9.7 TH/MM3 Lymphocytes # (Auto) 3.1 TH/MM3 Monocytes # (Auto) 1.4 TH/MM3 Eosinophils # (Auto) 0.1 TH/MM3 Basophils # (Auto) 0.1 TH/MM3 CBC Comment DIFF FINAL Differential Comment Urine Color COLORLESS Urine Turbidity CLEAR Urine pH 6.5 Urine Specific [place] 1.005 Urine Protein NEG mg/dL Urine Glucose (UA) NEG mg/dL Urine Ketones NEG mg/dL Urine Occult Blood NEG Urine Nitrite NEG Urine Bilirubin NEG Urine Urobilinogen LESS THAN 2.0 MG/DL Urine Leukocyte Esterase NEG Urine RBC LESS THAN 1 /hpf Urine WBC 1 /hpf Urine Squamous Epithelial Cells 4 /hpf Urine Bacteria OCC /hpf Microscopic Urinalysis Comment CULT NOT INDICATED Blood Urea Nitrogen 13 MG/DL Creatinine 0.94 MG/DL Random Glucose 94 MG/DL Total Protein 8.3 GM/DL Albumin 3.9 GM/DL Calcium Level 9.3 MG/DL Alkaline Phosphatase 119 U/L Aspartate Amino Transf (AST/SGOT) 24 U/L Alanine Aminotransferase (ALT/SGPT) 32 U/L Total Bilirubin 0.4 MG/DL Sodium Level 141 MEQ/L Potassium Level 4.0 MEQ/L Chloride Level 106 MEQ/L Carbon Dioxide Level 28.4 MEQ/L Anion Gap 7 MEQ/L Estimat Glomerular Filtration Rate 63 ML/MIN Lipase 80 U/L MDM Supervised Visit with [facility]: No Narrative Course The patient was initially evaluated by the previous provider and signed out to me at the beginning of my shift pending labs, CT abdomen pelvis, and disposition. See her note for further details. This is a 52-year-old female with history of diverticulitis here for evaluation of left upper quadrant abdominal pain that feels similar to previous episode of diverticulitis. Initial vital signs show heart rate 92, blood pressure 144/88, pulse ox 100% on room air, oral temp of 99.1F. CBC is remarkable for WBC 14.4 , hemoglobin 15.7, hematocrit 47.3, platelets 257. CMP is essentially unremarkable. UA is not suggestive of UTI. CT abdomen pelvis is consistent with diverticulitis without abscess or perforation. There is also a left adrenal adenoma that the patient reports has been there for over 10 years and has been followed by her primary care physician. The patient was made aware of all findings and on reassessment she states she feels improved after receiving morphine and Toradol. She will be started on Cipro and Flagyl here and is stable for outpatient treatment with primary care physician follow-up this week. She was advised on when to return to the emergency department. She verbalizes understanding and agreement with plan. Diagnosis Primary Impression: Acute diverticulitis Referrals: Primary Care Physician 3 days Additional Instruction: Follow-up with your primary care physician this week. Return to the emergency department for worsening symptoms or any other concerns as discussed. Scripts Hydrocodone-Acetaminophen (Hydrocodone-Acetaminophen) 5-325 mg Tab 1 TAB PO Q6H Y for PAIN, #15 TAB 0 Refills Prov: Davey Guzman MD 07/12/17 Metronidazole (Flagyl) 500 Mg Tab 500 MG PO BID for Infection for 10 Days, #20 TAB 0 Refills Prov: Davey Guzman MD 07/12/17 Ciprofloxacin (Cipro) 500 Mg Tab 500 MG PO BID for Infection for 10 Days, #20 TAB 0 Refills Prov: Davey Guzman MD 07/12/17 Disposition: 01 DISCHARGE HOME Condition: Stable Davey Guzman MD July 12, 2017 18:41
[2017-07-12] MEDS ORDERED: metroNIDAZOLE 500 MG TAB PO ONE (18:45)
== END 2017-07-12 19:06 | disposition home or self-care (01) ==
LOC: NEPD 15:17
DX: K57.32 Diverticulitis of large intestine without perforation or abscess without bleeding (principal); N20.0 Calculus of kidney; E27.9 Disorder of adrenal gland, unspecified; Z88.0 Allergy status to penicillin; Z79.899 Other long term (current) drug therapy
CPT/HCPCS: 74176; 80053; 81001; 83690; 85025; 87040; 96361; 96365; 96366; 96375; 96376; 99284; J0744; J1885; J2270; J7030

== ENCOUNTER 2018-04-24 18:24 | Observation (INO) ==
--- NOTE | 2018-04-24 19:47 | XR ---
EXAM DATE: 04/24/2018 7:37 PM EST AGE/SEX: 53 years / Female INDICATIONS: . Shortness of breath. CLINICAL DATA: This is the patient's initial encounter. Patient reports that signs and symptoms have been present for 1 day and indicates a pain score of 0/10. MEDICAL/SURGICAL HISTORY: None. None. COMPARISON: [facility], CHEST PA & LAT, 01/25/2017. . FINDINGS: No new focal pleural or parenchymal opacities. The cardiomediastinal contours are unremarkable. Fusio n hardware in the lower cervical spine. Osseous structures are intact. CONCLUSION: 1. No acute abnormality or significant interval change. Electronically signed by: Lang Glaser MD Board Certified Radiologist 04/24/2018 7:46 PM EST
[2018-04-24 19:51] LABS: Baso % (Auto) 0.3 % (0.0-2.0); Hematocrit 45.8 % (35.0-46.0); Hemoglobin 15.6 gm/dL (11.6-15.3); Lymph # (Auto) 0.9 th/mm3 (1.0-4.8); Lymph % (Auto) 11.1 % (9.0-44.0); Mean Corpuscular HGB Conc 34.1 % (32.0-36.0); Mean Corpuscular Hemoglobin 30.1 pg (27.0-34.0); Mean Corpuscular Volume 88.3 fL (80.0-100.0); Mean Platelet Volume 9.6 fL (7.0-11.0); Mono # (Auto) 0.1 th/mm3 (0.0-0.9); Mono % (Auto) 1.1 % (0.0-8.0); Neut # (Auto) 7.1 th/mm3 (1.8-7.7); Neut % (Auto) 87.5 % (16.0-70.0); Platelet Count 291 th/mm3 (150-450); Red Blood Count 5.19 mil/mm3 (4.00-5.30); Red Cell Distribution Width 13.9 % (11.6-17.2); White Blood Count 8.2 th/mm3 (4.0-11.0)
--- NOTE | 2018-04-24 19:53 | ED ---
HPI General Chief Complaint: Chest Pain Stated Complaint: shoulder pain Time Seen by Provider: 04/24/18 19:11 Source: patient Mode of arrival: ambulatory Limitations: no limitations History of Present Illness HPI narrative: Patient is a 53-year-old female who presents with complaint of chest pain with palpitations, headache, generalized weakness that began while doing nothing in particular at home. The chest pain does go to her left shoulder and is associated with dyspnea intermittently. This all began today. This has never happened before. The chest pain is a tightness/burning. No nausea nor vomiting. No fever nor chills. No cough nor congestion. No leg swelling nor immobilization. No family history of venous thromboembolism though she does have a history of cardiac disease in the family though she does not know at what age. MD complaint: Reports chest pain STEMI Alert: No Onset (ago): hour(s) Duration: constant Onset: during rest Pain location: Reports substernal Severity: moderate Quality: Reports tightness Pain radiation: Reports LUE Relieving factors: nothing Exacerbating factors: nothing Associated symptoms: Reports dyspnea Treatments prior to arrival chest pain: Reports none Related Data Home Medications Medication Instructions Recorded Confirmed cholecalciferol (vitamin D3) 5,000 units PO DAILY 09/20/17 04/24/18 [Vitamin D3] acetaminophen [Acetaminophen Extra 1,000 mg PO Q6H PRN 02/06/18 04/24/18 Strength] duloxetine [Cymbalta] 60 mg PO DAILY 02/06/18 04/24/18 ropinirole 0.5 mg PO BID 02/06/18 04/24/18 Allergies Allergy/AdvReac Type Severity Reaction Status Date / Time Penicillins Allergy Severe Rash Verified 04/24/18 08:48 penicillin G Allergy Mild Rash Verified 04/24/18 08:48 Review of Systems ROS: all other systems reviewed are negative [facility] Medical History Medical History Back pain (Acute) Cervical vertebral fusion (Acute) Diverticulitis (Acute) H/O: hysterectomy (Acute) Heartburn (Acute) History of anesthesia reaction (Acute) Metal bone fixation hardware in place (Acute) Neck pain (Acute) Surgical History Surgical History Hx of arthroscopic knee surgery (Acute) Social History Social History Substance History: No History of Abuse Second Hand Smoke Exposure: No Smoking Status: Never smoker How Often Do You Have a Drink Containing Alcohol: Never Recent Travel in [facility] within the Last 8 Weeks: No Recent Out of Country Travel within the Last 8 Weeks: No Immunization History Tetanus Immunization: <5 Years Exam Narrative Exam Narrative: GENERAL: Middle-aged lady in no acute respiratory distress though appearing uncomfortable SKIN: Focused skin assessment warm/dry. HEAD: Atraumatic. Normocephalic. EYES: Pupils equal and round. No scleral icterus. No injection or drainage. ENT: No nasal bleeding or discharge. Mucous membranes pink and moist. NECK: Trachea midline. No JVD. CARDIOVASCULAR: Heart rate in the low 100s. No murmur appreciated. Intact and equal peripheral pulses. RESPIRATORY: No accessory muscle use. Clear to auscultation. Breath sounds equal bilaterally. GASTROINTESTINAL: Abdomen soft, non-tender, nondistended. Hepatic and splenic margins not palpable. MUSCULOSKELETAL: No obvious deformities. No clubbing. No cyanosis. No edema. NEUROLOGICAL: Awake and alert. No obvious cranial nerve deficits. Motor grossly within normal limits. Normal sensation. Normal speech. PSYCHIATRIC: Appropriate mood and affect; insight and judgment normal. Course Initial Documented Vital Signs Temperature 98.8 F 04/24/18 18:26 Pulse Rate 115 H 04/24/18 18:26 Respiratory Rate 20 04/24/18 18:26 Blood Pressure 175/95 H 04/24/18 18:26 Pulse Oximetry 95 04/24/18 18:26 Last Documented Vital Signs Temperature 98.8 F 04/24/18 18:26 Pulse Rate 112 H 04/24/18 19:03 Respiratory Rate 20 04/24/18 19:03 Blood Pressure 146/68 H 04/24/18 19:03 Pulse Oximetry 94 L 04/24/18 19:03 Medical Decision Making [facility] Narrative Medical decision making narrative: Patient is a 53-year-old female who complains of chest pain that began today. She was tachycardic but hemodynamically stable on arrival. EKG showed sinus tachycardia but no ST segment deviation. Chest x-ray and CTA were also unremarkable. Labs including troponin are within normal limits. Her pain was relieved in the emergency department except for that in her head for which she has been given Tylenol. Admitted to the chest pain center for further evaluation and management. Medical Screen Exam Complete: Yes Emergency Medical Condition: Yes Differential Diagnosis Differential Diagnosis: Differential diagnosis includes but is not limited to acute coronary syndrome, pulmonary embolism, pneumothorax, pneumonia. Medical Records Medical records reviewed: Yes I reviewed the patient's medical records. Lab Data Lab results reviewed: Yes I reviewed the patient's lab results. Result diagrams: 04/24/18 19:40 04/24/18 19:40 Lab Results 04/24/18 04/24/18 04/24/18 Range/Units 19:40 19:40 19:40 WBC 8.2 (4.0-11.0) th/mm3 RBC 5.19 (4.00-5.30) mil/mm3 Hgb 15.6 H (11.6-15.3) gm/dL Hct 45.8 (35.0-46.0) % MCV 88.3 (80.0-100.0) fL MCH 30.1 (27.0-34.0) pg MCHC 34.1 (32.0-36.0) % RDW 13.9 (11.6-17.2) % Plt Count 291 (150-450) th/mm3 MPV 9.6 (7.0-11.0) fL Neut % (Auto) 87.5 H (16.0-70.0) % Lymph % (Auto) 11.1 (9.0-44.0) % [place] % (Auto) 1.1 (0.0-8.0) % Eos % (Auto) 0.0 (0.0-4.0) % Baso % (Auto) 0.3 (0.0-2.0) % Neut # (Auto) 7.1 (1.8-7.7) th/mm3 Lymph # (Auto) 0.9 L (1.0-4.8) th/mm3 [place] # (Auto) 0.1 (0.0-0.9) th/mm3 Eos # (Auto) 0.0 (0.0-0.4) th/mm3 Baso # (Auto) 0.0 (0.0-0.2) th/mm3 WBC Differential . Differential Comment Auto diff final Sodium 140 (136-145) meq/L Potassium 4.4 (3.5-5.1) meq/L Chloride 109 H (98-107) meq/L Carbon Dioxide 23.2 (21.0-32.0) meq/L Anion Gap 8 (5-15) meq/L BUN 15 (7-18) mg/dL Creatinine 0.90 (0.50-1.00) mg/dL Estimated GFR 66 L (>89) mL/min Random Glucose 175 H (74-106) mg/dL Calcium 9.3 (8.5-10.1) mg/dL Total Bilirubin 0.3 (0.2-1.0) mg/dL AST 26 (15-37) U/L ALT 39 (10-53) U/L Alkaline Phosphatase 114 (45-117) U/L Troponin I Less than 0.02 L (0.02-0.05) ng/mL B-Natriuretic Peptide 7 (0-100) pg/mL Total Protein 8.0 (6.4-8.2) g/dL Albumin 3.5 (3.4-5.0) g/dL Imaging Data Attestation: I personally reviewed and interpreted this imaging study as follows : Radiologist's impression: Chest CTA 04/24/18 19:23 CONCLUSION: 1. Negative for central pulmonary emboli. Chest X-Ray 04/24/18 19:24 CONCLUSION: 1. No acute abnormality or significant interval change. ECG Data EKG Prior to Arrival: No Attestation: I personally reviewed and interpreted this ECG as follows: (Sinus tachycardia at a rate of 114 bpm. There is T wave flattening in lead III, V2 and V3 but no ST deviation.) Discharge Plan Discharge Order Discharge Orders: ED Use Only Admit Order (Routine); Ordered 04/24/18 Ordered By: Tamar Pena Physicians Team ED Provider: Taamr Pena Primary Care Provider: Silvia Angulo Rxs /Orders / Referrals /Forms Prescriptions: No Action acetaminophen [Acetaminophen Extra Strength] 500 mg Tablet 1,000 mg PO Q6H PRN (Reason: Headache) RF: 0 ropinirole 0.5 mg Tablet 0.5 mg PO BID RF: 0 duloxetine [Cymbalta] 60 mg Capsule,Delayed Release(Dr/Ec) 60 mg PO DAILY RF: 0 cholecalciferol (vitamin D3) [Vitamin D3] 5,000 unit Tablet 5,000 units PO DAILY RF: 0 Discharge Interventions Interventions: Vital Signs Last Done: 04/24/18 19:03 Status ED Status: With Doctor
[2018-04-24] MEDS ORDERED: Sodium Chlor 0.9% Inj 500 ML IV.SIG SCH (20:00)
--- NOTE | 2018-04-24 20:00 | CT ---
EXAM DATE: 04/24/2018 7:54 PM EST AGE/SEX: 53 years / Female INDICATIONS: Weakness, sharp left shoulder pain, hypertension, tachycardia. CLINICAL DATA: This is the patient's initial encounter. Patient reports that signs and symptoms have been present for 1 day and indicates a pain score of 6/10. MEDICAL/SURGICAL HISTORY: Diverticulitis. Hysterectomy. Cervical fusion. RADIATION DOSE: 5.67 CTDI (mGy) COMPARISON: No prior exams available for comparison. TECHNIQUE: Volumetric scanning was performed using a multi-row detector CT scanner during bolus infu ishmael of 74ml ml Omnipaque 350 (iohexol) nonionic water-soluble contrast as a single exam dose. The d silas was post processed with a variety of visualization algorithms including full volume maximum inten sity projection and sliding thin slab reformation. Using automated exposure control and adjustment of the mA and/or kV according to patient size, radiation dose was kept as low as reasonably achievable to obtain optimal diagnostic quality images. DICOM format image data is available electronically for review and comparison. FINDINGS: Pulmonary Arteries: No filling defects are seen in the pulmonary arteries out to the subsegmental ve ssels. The left and right pulmonary arteries are normal in diameter. Normal size ascending and desce nding aorta without dissection Lung: No infiltrates seen. Effusion: None. Mediastinum: No evidence of mediastinal or hilar adenopathy. Other: The axilla is unremarkable. CONCLUSION: 1. Negative for central pulmonary emboli. Electronically signed by: Uriel Hernandez MD Board Certified Radiologist 04/24/2018 7:59 PM EST
[2018-04-24 20:09] LABS: Albumin 3.5 g/dL (3.4-5.0); Anion Gap 8 meq/L (5-15); Aspartate Aminotransferase 26 U/L (15-37); Blood Urea Nitrogen 15 mg/dL (7-18); Calcium 9.3 mg/dL (8.5-10.1); Carbon Dioxide 23.2 meq/L (21.0-32.0); Chloride 109 meq/L (98-107); Glomerular Filtration Rate 66 mL/min (>89); Glucose,Random 175 mg/dL (74-106); Potassium 4.4 meq/L (3.5-5.1); Sodium 140 meq/L (136-145)
[2018-04-24 20:10] LABS: Alanine Aminotransferase 39 U/L (10-53)
[2018-04-24 20:14] LABS: Alkaline Phosphatase 114 U/L (45-117)
[2018-04-24] MEDS ORDERED: Acetaminophen 325 MG Tablet PO ONE (21:07)
[2018-04-24 22:54] LABS: Creatine Kinase 74 U/L (26-192)
[2018-04-25 04:41] VITALS: PULSE 76
[2018-04-25] MEDS ORDERED: Regadenoson Inj 0.4 MG/5 ML Syringe IV.PUSH ONE (08:02)
[2018-04-25 08:15] VITALS: BP 106/68; RESP 20; TEMP 98.1; O2SAT 95
--- NOTE | 2018-04-25 09:06 | P.HPCA ---
History of Present Illness Primary Care Physician: Silvia Angulo MD Chief Complaint: Chest pain History of Present Illness: 53 year old female with history of chronic pain presents emergency room for further evaluation of multiple complaints. Upon awakening yesterday afternoon from nap felt "funny," diaphoretic, increased heart rate, palpitations, generalized headache, and substernal chest discomfort. Chest discomfort characterized as burning with "slight" discomfort in left shoulder. Left shoulder discomfort difficult for her to think which from her chronic left shoulder pain. Duration 4-5 hours. No precipitating factors, however does state having her regular shoulder injection yesterday. No relieving factors, stating nitro paste gradually improved discomfort over the night. No current discomfort. Headache mild, reporting basically resolved. All other symptoms resolved. No recent illness, fever, or chills. Past cardiac testing None Social history Denies hypertension, hyperlipidemia, or diabetes. Lifelong non-smoker. No alcohol use. . Unemployed. Endorses sedentary lifestyle. Family history Noncontributory for early onset cardiovascular disease. Father history of atrial fibrillation, multiple lesions, and congestive heart failure. - Diagnosis (1) Atypical chest pain (2) Cephalgia Review of Systems All other systems reviewed negative except as stated in HPI PMFSH - History History Provided By: Patient - Medical History Medical History: Medical History (Last Updated 04/25/18 @ 09:03 by BARBARA Genao) Chronic pain syndrome Back pain Cervical vertebral fusion Diverticulitis H/O: hysterectomy Heartburn History of anesthesia reaction Metal bone fixation hardware in place Neck pain - Surgical History Surgical History: Surgical History (Last Reviewed 04/25/18 @ 09:03 by BARBARA Genao) Hx of arthroscopic knee surgery - Family History Family History: Family History (Last Updated 04/25/18 @ 09:04 by BARBARA Genao) Father Congestive heart failure Atrial fibrillation - Tobacco History Second Hand Smoke Exposure: No Smoking Status: Never smoker - Alcohol History How Often Do You Have a Drink Containing Alcohol: Never - Substance Use History Substance History: No History of Abuse - Travel History Recent Travel in the [place] Within the Last 8 Weeks: No Recent Travel Out of the Country Within the Last 8 Weeks: No - Immunization History Tetanus Immunization: <5 Years Medications and Allergies Active Medications: Active Medications Albuterol (Albuterol Neb (Prn)) 2.5 mg NEB UNSCH PRN PRN Reason: SHORTNESS OF BREATH/WHEEZING Albuterol (Duoneb Neb (Prn)) 1 ampul NEB UNSCH PRN PRN Reason: SHORTNESS OF BREATH/WHEEZING Sodium Chloride (Ns Flush) 2 ml IV.FLUSH UNSCH PRN PRN Reason: FLUSH AFTER USING IV ACCESS Sodium Chloride (Ns Flush) 2 ml IV.FLUSH BID LIGIA Sodium Chloride (Ns Flush) 2 ml IV.FLUSH PRN PRN PRN Reason: FLUSH AFTER USING IV ACCESS Allergies Allergy/AdvReac Type Severity Reaction Status Date / Time Penicillins Allergy Severe Rash Verified 04/24/18 08:48 penicillin G Allergy Mild Rash Verified 04/24/18 08:48 Home Medications Medication Instructions Recorded Confirmed Type cholecalciferol (vitamin D3) 5,000 units PO DAILY 09/20/17 04/24/18 History [Vitamin D3] acetaminophen [Acetaminophen Extra 1,000 mg PO Q6H PRN 02/06/18 04/24/18 History Strength] duloxetine [Cymbalta] 60 mg PO DAILY 02/06/18 04/24/18 History ropinirole 0.5 mg PO BID 02/06/18 04/24/18 History Exam Vital signs: Vital Signs 04/24/18 18:26 04/24/18 19:03 04/24/18 19:30 Temperature 98.8 F Pulse Rate 115 H 112 H Respiratory Rate 20 20 Blood Pressure 175/95 H 146/68 H Pulse Oximetry 95 94 L 94 L 04/24/18 20:50 04/24/18 22:22 04/24/18 23:53 Temperature Pulse Rate 83 88 89 Respiratory Rate 14 18 16 Blood Pressure 119/75 121/73 125/66 Pulse Oximetry 94 L 94 L 94 L 04/25/18 00:00 04/25/18 04:00 04/25/18 08:09 Temperature 98.1 F Pulse Rate 87 76 76 Respiratory Rate 16 20 Blood Pressure 131/70 106/68 Pulse Oximetry 94 L 95 Intake & Output 04/24/18 04/25/18 04/25/18 18:59 06:59 18:59 Intake Total 500 / 500 Balance 500 / 500 Weight 113.398 kg 113.398 kg Intake: IV 500 / 500 NS Inj 500 ML @ 1000 mls/hr IV. 500 / 500 SIG BOLUS [facility] Rx#:[id number] Other: Date of Last Bowel Movement 04/24/18 Weight On Admission 113.398 kg Narrative: GENERAL: Alert WN, WD, NAD, pleasant, morbidly obese female HEAD: NC, AT EYES: Sclera clear, conjunctiva without injection, pupils equal and round ENT: Mucous membranes pink and moist CV: RRR, without murmur, rub, gallop. No carotid bruits. Chest wall nontender to palpation. RESP: Clear lungs throughout bilateral, no crackles, wheeze, rhonchi, symmetrical chest rise, nonlabored, able to speak in full sentences ABD: Soft, NT, ND, no masses, positive bowel tones EXT: Pulses +2x4, no dependent edema MS: Normal tone x4 extremities, nontender, no obvious deformities, full range of motion NEURO: Motor strength 5/5 PSYCH: A+O x3, pleasant affect, appropriate speech, mood, insight and judgment SKIN: Normal turgor, normal texture Results 04/24/18 19:40 04/24/18 19:40 Cardiac Enzymes 04/24/18 04/24/18 04/24/18 Range/Units 19:40 19:40 22:00 AST 26 (15-37) U/L Troponin I Less than 0.02 L Less than 0.02 L (0.02-0.05) ng/mL B-Natriuretic Peptide 7 (0-100) pg/mL 04/25/18 Range/Units 01:41 AST (15-37) U/L Troponin I Less than 0.02 L (0.02-0.05) ng/mL B-Natriuretic Peptide (0-100) pg/mL Coagulation 04/24/18 Range/Units 19:40 B-Natriuretic Peptide 7 (0-100) pg/mL CBC 04/24/18 Range/Units 19:40 WBC 8.2 (4.0-11.0) th/mm3 RBC 5.19 (4.00-5.30) mil/mm3 Hgb 15.6 H (11.6-15.3) gm/dL Hct 45.8 (35.0-46.0) % Plt Count 291 (150-450) th/mm3 Neut # (Auto) 7.1 (1.8-7.7) th/mm3 Lymph # (Auto) 0.9 L (1.0-4.8) th/mm3 [place] # (Auto) 0.1 (0.0-0.9) th/mm3 Eos # (Auto) 0.0 (0.0-0.4) th/mm3 Baso # (Auto) 0.0 (0.0-0.2) th/mm3 Comprehensive Metabolic Panel 04/24/18 Range/Units 19:40 Sodium 140 (136-145) meq/L Potassium 4.4 (3.5-5.1) meq/L Chloride 109 H (98-107) meq/L Carbon Dioxide 23.2 (21.0-32.0) meq/L BUN 15 (7-18) mg/dL Creatinine 0.90 (0.50-1.00) mg/dL Calcium 9.3 (8.5-10.1) mg/dL AST 26 (15-37) U/L ALT 39 (10-53) U/L Alkaline Phosphatase 114 (45-117) U/L Total Protein 8.0 (6.4-8.2) g/dL Albumin 3.5 (3.4-5.0) g/dL Intake and Output 04/24/18 04/25/18 04/25/18 22:59 06:59 14:59 Intake Total 500 / 500 Balance 500 / 500 Intake: IV 500 / 500 NS Inj 500 ML @ 1000 mls/hr IV. 500 / 500 SIG BOLUS [facility] Rx#:[id number] Other: Date of Last Bowel Movement 04/24/18 Weight 113.398 kg Weight On Admission 113.398 kg - Imaging and Cardiology Imaging: Impressions Chest CTA 04/24/18 19:23 CONCLUSION: 1. Negative for central pulmonary emboli. Chest X-Ray 04/24/18 19:24 CONCLUSION: 1. No acute abnormality or significant interval change. EKG interpretations - EKG EKG results cardiology: normal axis, normal QRS, normal ST/T - Dysrhythmias Sinus rhythms and dysrhythmias: sinus tachycardia Caprini VTE Risk Assessment Caprini VTE Risk Assessment: No/Low Risk (score <= 1) Caprini Risk Assessment Model: Point Value = 1 Point Value = 2 Point Value = 3 Point Value = 5 Age 41-60 Minor surgery BMI > 25 kg/m2 Swollen legs Varicose veins or History of unexplained or recurrent spontaneous Oral contraceptives or hormone replacement Sepsis (< 1 month) Serious lung disease, including pneumonia (< 1 month) Abnormal pulmonary function Acute myocardial infarction Congestive heart failure (< 1 month) History of inflammatory bowel disease Medical patient at bed rest Age 61-74 Arthroscopic surgery Major open surgery (> 45 min) Laparoscopic surgery (> 45 min) Malignancy Confined to bed (> 72 hours) Immobilizing plaster cast Central venous access Age >= 75 History of VTE Family history of VTE Factor V Leiden Prothrombin [id number] Lupus anticoagulant Anticardiolipin antibodies Elevated serum homocysteine Heparin-induced thrombocytopenia Other congenital or acquired thrombophilia Stroke (< 1 month) Elective arthroplasty Hip, pelvis, or leg fracture Acute spinal cord injury (< 1 month) Prophylaxis Regimen: Total Risk Factor Score Risk Level Prophylaxis Regimen 0-1 Low Early ambulation 2 Moderate Order ONE of the following: *Sequential Compression Device (SCD) *Heparin 5000 units SQ BID 3-4 Higher Order ONE of the following medications: *Heparin 5000 units SQ TID *Enoxaparin/Lovenox 40 mg SQ daily (WT < 150 kg, CrCl > 30 mL/min) *Enoxaparin/Lovenox 30 mg SQ daily (WT < 150 kg, CrCl > 10-29 mL/min) *Enoxaparin/Lovenox 30 mg SQ BID (WT < 150 kg, CrCl > 30 mL/min) AND/OR *Sequential Compression Device (SCD) 5 or more Highest Order ONE of the following medications: *Heparin 5000 units SQ TID (Preferred with Epidurals) *Enoxaparin/Lovenox 40 mg SQ daily (WT < 150 kg, CrCl > 30 mL/min) *Enoxaparin/Lovenox 30 mg SQ daily (WT < 150 kg, CrCl > 10-29 mL/min) *Enoxaparin/Lovenox 30 mg SQ BID (WT < 150 kg, CrCl > 30 mL/min) AND *Sequential Compression Device (SCD) Assessment and Plan - Assessment (1) Atypical chest pain Code(s): R07.89 - Other chest pain Status: Acute Plan: Admitted chest pain center. Monitor on telemetry overnight. ACS rule out 3 sets of EKGs and cardiac enzymes. Seen and evaluated by Dr. Anatoliy Quiros. Proceed with Lexiscan this morning. If unremarkable, plans of discharge home with follow-up with primary care provider. (2) Cephalgia Code(s): R51 - Headache Status: Acute Plan: Improving. Nitro paste removed. Tylenol PRN. H&P: Quality - VTE Deep Vein Thrombosis/Pulmonary Embolism Present on Admission: No (2) Cephalgia Qualifiers: Headache type: unspecified Headache chronicity pattern: unspecified pattern Intractability: not intractable Qualified Code(s): R51 - Headache
[2018-04-25] MEDS ORDERED: Acetaminophen 325 MG Tablet PO PRN (09:08)
[2018-04-25] MEDS ORDERED: Duloxetine 60 MG DR Capsule PO SCH (09:15)
--- NOTE | 2018-04-25 13:48 | NM ---
EXAM DATE: 04/25/2018 1:09 PM EST AGE/SEX: 53 years / Female INDICATIONS:Angina. . Chest pain radiating to the left shoulder with dyspnea. CLINICAL DATA: This is the patient's initial encounter. Patient reports that signs and symptoms have been present for 1 day and indicates a pain score of 4/10. MEDICAL/SURGICAL HISTORY: Diverticulitis. Hysterectomy. COMPARISON: No prior exams available for comparison. DOSE: 11 mCi Tc 99m Myoview at rest 35 mCi [id number] at stress 0.4 mg Lexiscan STRESS SYMPTOMS: Chest pressure. EJECTION FRACTION: 69 % TECHNIQUE: The patient underwent pharmacologic stress with infusion of prescribed dose. Continuous ECG tracing was monitored during stress. Gated SPECT imaging was performed after stress and conventi onal SPECT imaging was performed at rest. The examination was performed on a SPECT/CT scanner, both attenuation and non-corrected datasets were reviewed. FINDINGS: Distribution: The maximum perfused segment at stress is in the inferoseptal wall. Perfusion Study: The pattern of perfusion at stress is within normal limits. Gated Study: There are intact wall motion and wall thickening without hypokinetic or dyskinetic segm ents. The ejection fraction is calculated at 69%. RISK CATEGORY: Low (<1% Annual Mortality Rate) CONCLUSION: 1. No scintigraphic evidence of infarct or ischemia. 2. Excellent wall motion throughout with an estimated ejection fraction of 69%. Electronically signed by: Rob Moody MD Board Certified Radiologist 04/25/2018 1:46 PM EST
--- NOTE | 2018-04-25 14:22 | ECG ---
Date Performed: 04/25/2018 Time Performed: 01:56:07 PTAGE: 53 years EKG: Sinus rhythm NORMAL ECG PREVIOUS TRACING : 04/24/2018 22.15 Since previous tracing, no significant change noted DOCTOR: Anatoliy Quiros Interpretating Date/Time 04/25/2018 14:20:54
--- NOTE | 2018-04-25 14:23 | ECG ---
Date Performed: 04/24/2018 Time Performed: 18:30:57 PTAGE: 53 years EKG: SINUS TACHYCARDIA ABNORMAL RHYTHM ECG PREVIOUS TRACING : 09/20/2017 06.45 Since previous tracing, no significant change noted DOCTOR: Anatoliy Quiros Interpretating Date/Time 04/25/2018 14:21:53
--- NOTE | 2018-04-25 14:23 | ECG ---
Date Performed: 04/24/2018 Time Performed: 22:15:00 PTAGE: 53 years EKG: Sinus rhythm NORMAL ECG PREVIOUS TRACING : 04/24/2018 18.30 Since previous tracing, no significant change noted DOCTOR: Anatoliy Quiros Interpretating Date/Time 04/25/2018 14:21:34
--- NOTE | 2018-04-25 14:27 | TR ---
Date Performed: 04/25/2018 Time Performed: 11:42:04 DOCTOR: Anatoliy Quiros DRUG LIST: CLINICAL HISTORY: REASON FOR TEST: REASON FOR ENDING: OBSERVATION: CONCLUSION: COMMENTS: Lexiscan stress test was performed under standard four minute protocol. Radionuclide was injected one minute prior to ending the test. No electrocardiographic abormalities were present t o suggest ischemia. Nuclear imaging and interpretation are pending.
== END 2018-04-25 14:19 | disposition home or self-care (01) ==
LOC: NEPE 18:24 → NEDA 18:24 → NEPGCP 22:29
PROVIDERS: ADMIT Internal Medicine Interventional Cardiology; ATTEND Internal Medicine Interventional Cardiology
CPT/HCPCS: 71020; 71046; 71275; 78452; 80053; 82550; 83520; 83880; 84484; 85025; 90760; 93005; 93017; 96360; 99285; A9502; G0378; J2785; J7040; Q9967; Q9969